=== PATIENT | female | born 1945 | race Caucasian/White ===

== ENCOUNTER 2024-10-06 14:44 | Inpatient (IN) | payer MEDICARE ==
[~2024-10-06] VITALS: Ht 152.4 cm; Wt 45.4 kg
[2024-10-06] MEDS ORDERED: ATENOLOL (14:56)
[2024-10-06] MEDS: IV NORMAL SALINE 1000 ML BAG IV ONE (15:15)
[2024-10-06 15:31] LABS: BASOPHILS # (AUTO) 0.1 K/UL (0.0-0.2); BASOPHILS % (AUTO) 1.5 % (0.0-2.0); DIFFERENTIAL COMMENT 1; EOSINOPHILS # (AUTO) 0.5 K/uL (0.0-0.7); EOSINOPHILS % (AUTO) 8.4 % (0.0-7.0); HEMATOCRIT 26.6 % (31.2-41.9); HEMOGLOBIN 9.2 g/dL (10.9-14.3); LYMPHOCYTES # (AUTO) 1.7 K/uL (0.8-4.8); LYMPHOCYTES % (AUTO) 32.1 % (20.5-51.5); MEAN CORPUSCULAR HGB CONC 35 g/dL (32.3-35.6); MEAN CORPUSCULAR VOLUME 89.9 fL (75.5-95.3); MONOCYTES # (AUTO) 0.4 K/uL (0.1-1.30); MONOCYTES % (AUTO) 7.5 % (0.0-11.0); NEUTROPHILS # (AUTO) 2.7 K/uL (1.8-8.9); NEUTROPHILS % (AUTO) 50.5 % (38.5-71.5); PLATELET COUNT (AUTO) 328 K/uL (179-408); RED BLOOD CELL COUNT(AUTO) 2.95 MIL/uL (3.63-4.92); RED CELL DISTRIBUTION WIDTH 13.7 % (12.3-17.7); WHITE BLOOD COUNT (AUTO) 5.4 K/uL (3.8-11.8)
[2024-10-06 15:35] LABS: CALCIUM 9.3 mg/dL (8.5-10.1); CARBON DIOXIDE 31 mmol/L (21-32); CHLORIDE 104 mmol/L (98-107); GLUCOSE 168 mg/dL (74-106); POTASSIUM 3.7 mmol/L (3.5-5.1); SODIUM SERUM 143 mmol/L (136-145); UREA NITROGEN, BLOOD 13 mg/dL (7-18)
[2024-10-06 15:42] LABS: *BILIRUBIN,URIN NEGATIVE (NEGATIVE); *BLOOD, URINE NEGATIVE (NEGATIVE); *CLARITY,URINE CLEAR (CLEAR); *COLOR,URINE YELLOW (YELLOW); *KETONES,URINE NEGATIVE (NEGATIVE); *PROTEIN,URINE NEGATIVE (NEGATIVE); *UROBILINOGEN,URINE 0.2 E.U./dl (NORMAL); LEUKOCYTE ESTERASE ,URINE NEGATIVE (NEGATIVE); NITRITE, URINE NEGATIVE (NEGATIVE); UGLUCOSE NEGATIVE (NEGATIVE)
[2024-10-06 15:43] LABS: ALANINE AMINOTRANSFERASE 65 U/L (14-59); ALBUMIN 3.1 g/dL (3.4-5.0); ALKALINE PHOSPHATASE 476 U/L (50-136); ASPARTATE AMINOTRANSFERASE 69 U/L (15-37); BILIRUBIN,DIRECT 0.1 mg/dL (0.0-0.2); BILIRUBIN,TOTAL 0.3 mg/dL (0.2-1.0)
[2024-10-06 16:53] LABS: IRON, SERUM 36 ug/dL (50-175)
[2024-10-06] MEDS ORDERED: ONDANSETRON 4 MG/2 ML VIAL IV PRN (19:45)
[2024-10-06 20:30] VITALS: BP 158/72; TEMP 98.3; O2SAT 98
[2024-10-06] MEDS: ENOXAPARIN SODIUM 40 MG/0.4 ML DISP.SYRIN SQ SCH (21:05)
[2024-10-07] VITALS (8 sets, daily range): BP systolic 129–156; BP diastolic 57–72; TEMP 97.9–99; O2SAT 97–100
[2024-10-07] MEDS: PANTOPRAZOLE SODIUM 40 MG TABLET.DR PO SCH (06:07)
[2024-10-07 06:57] LABS: BASOPHILS # (AUTO) 0.1 K/UL (0.0-0.2); BASOPHILS % (AUTO) 1.2 % (0.0-2.0); EOSINOPHILS # (AUTO) 0.3 K/uL (0.0-0.7); EOSINOPHILS % (AUTO) 4.3 % (0.0-7.0); HEMOGLOBIN 7.8 g/dL (10.9-14.3); LYMPHOCYTES # (AUTO) 2.4 K/uL (0.8-4.8); LYMPHOCYTES % (AUTO) 34.7 % (20.5-51.5); MEAN CORPUSCULAR HEMOGLOBIN 30.7 uug (24.7-32.8); MEAN CORPUSCULAR HGB CONC 34 g/dL (32.3-35.6); MEAN CORPUSCULAR VOLUME 90.9 fL (75.5-95.3); MONOCYTES # (AUTO) 0.5 K/uL (0.1-1.30); MONOCYTES % (AUTO) 6.5 % (0.0-11.0); NEUTROPHILS # (AUTO) 3.8 K/uL (1.8-8.9); NEUTROPHILS % (AUTO) 53.3 % (38.5-71.5); PLATELET COUNT (AUTO) 313 K/uL (179-408); RED BLOOD CELL COUNT(AUTO) 2.53 MIL/uL (3.63-4.92); RED CELL DISTRIBUTION WIDTH 13.8 % (12.3-17.7); WHITE BLOOD COUNT (AUTO) 7.1 K/uL (3.8-11.8)
[2024-10-07 07:23] LABS: DIFFERENTIAL COMMENT 1
[2024-10-07 07:26] LABS: CALCIUM 8.7 mg/dL (8.5-10.1); CARBON DIOXIDE 30 mmol/L (21-32); CHLORIDE 109 mmol/L (98-107); CHOLESTEROL 167 mg/dL (<200); CREATININE 0.7 mg/dL (0.6-1.3); GLUCOSE 124 mg/dL (74-106); HDL CHOLESTEROL 65 mg/dL (40-60); PHOSPHOROUS 2.7 mg/dL (2.5-4.9); POTASSIUM 3.6 mmol/L (3.5-5.1); SODIUM SERUM 144 mmol/L (136-145); TRIGLYCERIDES 101 MG/DL (30-150); UREA NITROGEN, BLOOD 21 mg/dL (7-18)
[2024-10-07 12:24] LABS: THYROID STIMULATING HORMONE 2.299 mIU/mL (0.358-3.740)
[2024-10-07 13:20] LABS: HEMATOCRIT 23.5 % (31.2-41.9); HEMOGLOBIN 7.9 g/dL (10.9-14.3)
[2024-10-07] MEDS ORDERED: NIFE-60 PO (13:52)
[2024-10-07] MEDS ORDERED: CHOL100045 PO (13:53)
[2024-10-07] MEDS: SOD FERRIC GLUC COMPLX/SUCROSE 125 MG in IV NORMAL SALINE 100 ML IV SCH (14:55)
[2024-10-07] MEDS: ENSURE ENLIVE (VAN) 240 ML LIQUID PO SCH (18:08)
[2024-10-07] MEDS: MIRALAX 17 GM POWD.PACK PO SCH (18:51)
[2024-10-07 18:58] LABS: HEMATOCRIT 23.4 % (31.2-41.9); HEMOGLOBIN 7.7 g/dL (10.9-14.3)
[2024-10-07] MEDS: ACETAMINOPHEN 325 MG TABLET PO PRN (21:20)
[2024-10-08] VITALS (14 sets, daily range): BP systolic 137–162; BP diastolic 62–75; TEMP 97.8–98.5; O2SAT 97–100
[2024-10-08 07:04] LABS: BASOPHILS # (AUTO) 0.1 K/UL (0.0-0.2); BASOPHILS % (AUTO) 1.3 % (0.0-2.0); EOSINOPHILS # (AUTO) 0.5 K/uL (0.0-0.7); EOSINOPHILS % (AUTO) 7.6 % (0.0-7.0); LYMPHOCYTES # (AUTO) 1.8 K/uL (0.8-4.8); LYMPHOCYTES % (AUTO) 25.3 % (20.5-51.5); MEAN CORPUSCULAR HEMOGLOBIN 31.1 uug (24.7-32.8); MEAN CORPUSCULAR HGB CONC 34 g/dL (32.3-35.6); MEAN CORPUSCULAR VOLUME 90.7 fL (75.5-95.3); MONOCYTES # (AUTO) 0.7 K/uL (0.1-1.30); MONOCYTES % (AUTO) 10.2 % (0.0-11.0); NEUTROPHILS # (AUTO) 3.9 K/uL (1.8-8.9); NEUTROPHILS % (AUTO) 55.6 % (38.5-71.5); PLATELET COUNT (AUTO) 280 K/uL (179-408); RED CELL DISTRIBUTION WIDTH 13.8 % (12.3-17.7); WHITE BLOOD COUNT (AUTO) 6.9 K/uL (3.8-11.8)
[2024-10-08 07:19] LABS: DIFFERENTIAL COMMENT 1; HEMATOCRIT 20.5 % (31.2-41.9); RED BLOOD CELL COUNT(AUTO) 2.26 MIL/uL (3.63-4.92)
[2024-10-08 08:02] LABS: CALCIUM 9.1 mg/dL (8.5-10.1); CARBON DIOXIDE 28 mmol/L (21-32); CHLORIDE 108 mmol/L (98-107); CREATININE 0.8 mg/dL (0.6-1.3); GLUCOSE 106 mg/dL (74-106); MAGNESIUM 2.1 mg/dL (1.8-2.4); PHOSPHOROUS 3.9 mg/dL (2.5-4.9); POTASSIUM 3.8 mmol/L (3.5-5.1); SODIUM SERUM 141 mmol/L (136-145); UREA NITROGEN, BLOOD 19 mg/dL (7-18)
[2024-10-08 11:04] LABS: *OCCULT BLOOD STOOL POSITIVE (NEGATIVE)
[2024-10-08] MEDS: CHOLECALCIFEROL 1,000 UNIT TABLET PO SCH (14:30)
[2024-10-08] MEDS ORDERED: PROPOFOL 200 MG/20 ML BOTTLE ONE (19:00)
[2024-10-09 04:57] VITALS: BP 140/66; TEMP 98.7; O2SAT 96
[2024-10-09 05:03] VITALS: BP 140/66; TEMP 99.7; O2SAT 96
[2024-10-09 07:41] LABS: BASOPHILS # (AUTO) 0.1 K/UL (0.0-0.2); BASOPHILS % (AUTO) 1.2 % (0.0-2.0); EOSINOPHILS # (AUTO) 0.5 K/uL (0.0-0.7); EOSINOPHILS % (AUTO) 7.5 % (0.0-7.0); HEMATOCRIT 25.9 % (31.2-41.9); HEMOGLOBIN 8.9 g/dL (10.9-14.3); LYMPHOCYTES # (AUTO) 2.5 K/uL (0.8-4.8); LYMPHOCYTES % (AUTO) 35.1 % (20.5-51.5); MEAN CORPUSCULAR HEMOGLOBIN 31.1 uug (24.7-32.8); MEAN CORPUSCULAR HGB CONC 34 g/dL (32.3-35.6); MEAN CORPUSCULAR VOLUME 90.6 fL (75.5-95.3); MONOCYTES # (AUTO) 0.7 K/uL (0.1-1.30); MONOCYTES % (AUTO) 9.5 % (0.0-11.0); NEUTROPHILS # (AUTO) 3.3 K/uL (1.8-8.9); NEUTROPHILS % (AUTO) 46.7 % (38.5-71.5); PLATELET COUNT (AUTO) 272 K/uL (179-408); RED BLOOD CELL COUNT(AUTO) 2.85 MIL/uL (3.63-4.92); RED CELL DISTRIBUTION WIDTH 14.1 % (12.3-17.7)
[2024-10-09 07:50] LABS: DIFFERENTIAL COMMENT 1
[2024-10-09 08:00] LABS: CALCIUM 8.7 mg/dL (8.5-10.1); CARBON DIOXIDE 28 mmol/L (21-32); CHLORIDE 108 mmol/L (98-107); CREATININE 0.7 mg/dL (0.6-1.3); GLUCOSE 83 mg/dL (74-106); MAGNESIUM 2.1 mg/dL (1.8-2.4); PHOSPHOROUS 3.9 mg/dL (2.5-4.9); POTASSIUM 3.7 mmol/L (3.5-5.1); SODIUM SERUM 144 mmol/L (136-145); UREA NITROGEN, BLOOD 14 mg/dL (7-18)
[2024-10-09] MEDS ORDERED: CHOLECALCIFEROL PO SCH (09:00)
[2024-10-09] MEDS ORDERED: SUCR1ORA15 PO (10:10)
[2024-10-09] MEDS ORDERED: PANT40TA2 PO (10:10)
[2024-10-09 11:05] VITALS: BP 135/57; TEMP 98.9; O2SAT 99
== END 2024-10-09 11:15 | disposition home or self-care (01) | DRG 811 ==
LOC: ER 14:46 → TELE3 17:14 → MEDSURG3 10-08 10:55
PROVIDERS: ADMIT Nurse Practitioner Family; ATTEND Nurse Practitioner Family
PROC: 0DB68ZX Excision of Stomach, Via Natural or Artificial Opening Endoscopic, Diagnostic (ICD-10-PCS; principal; 2024-10-08)
PROC: 30233N1 Transfusion of Nonautologous Red Blood Cells into Peripheral Vein, Percutaneous Approach (ICD-10-PCS; 2024-10-08)
DX: D62 Acute posthemorrhagic anemia (principal); K25.4 Chronic or unspecified gastric ulcer with hemorrhage; E44.1 Mild protein-calorie malnutrition; I95.89 Other hypotension; E88.09 Other disorders of plasma-protein metabolism, not elsewhere classified; K29.70 Gastritis, unspecified, without bleeding; R74.01 Elevation of levels of liver transaminase levels; I10 Essential (primary) hypertension; E78.5 Hyperlipidemia, unspecified; I69.298 Other sequelae of other nontraumatic intracranial hemorrhage; H91.93 Unspecified hearing loss, bilateral
CPT/HCPCS: 36415; 71045; 76705; 83550; 83605; 83735; 84100; 84443; 84484; 85018; 85025; 85730; 86850; 86900; 86901; 86920; 93307; A4606; A4663; G0378; J1650; J2916; J3490; J7040; P9016